=== PATIENT | female | born 1945 | race Two or more races ===

== ENCOUNTER 2016-06-15 09:15 | Emergency (ER) | payer OTHER, MEDICAID ==
[2016-06-15 10:12] VITALS: BP 150/59; PULSE 81; RESP 16; TEMP 97.9; O2SAT 98
--- NOTE | 2016-06-15 10:51 | UCPHY ---
H & P Time Seen by Provider: 06/15/16 10:49 Patient Type: Established HPI/ROS: CHIEF COMPLAINT: Tailbone pain. HISTORY OF PRESENT ILLNESS: The patient is a 71-year-old female who presents after slipping on ice 10 days ago. She is complaining of tailbone pain that has been worsening since she fell and she is now having difficulty walking from the pain. The pain does not radiate and is worsened with movement. Intermittently her left leg from the knee down goes numb. She did not hit her head or lose consciousness. She initially had neck pain but this subsided after 3 or 4 days. She denies incontinence, weakness, hematuria, or other complaints. She has been treating the pain with extra strength Tylenol. Given her age and DM she avoids NSAIDS. Last injection to the LS area for pain was this past Dec. The pain in last 10 days from fall is in a different area and feels diffenerent than her chronic, epiodic pains. REVIEW OF SYSTEMS: Constitutional: No fever, no chills. Eyes: No diplopia. ENT: No sore throat. Cardiovascular: No chest pain, no palpitations. Respiratory: No cough, no shortness of breath, no wheezing. Gastrointestinal: No nausea vomiting or diarrhea. No abdominal pain. Genitourinary: No hematuria or frequency. Musculoskeletal: See HPI. Skin: No rashes. Neurological: No headache. 10 point ROS otherwise negative Past Medical/Surgical History: Diabetes, hysterectomy, hypertension, hyperlipidemia. Social History: Nonsmoker. Smoking Status: Never smoked Physical Exam: General Appearance: Alert, no distress. Afebrile. Normal phonation. No respiratory distress. Eyes: Pupils equal and round no pallor or injection. No icterus ENT, Mouth: Mucous membranes moist. Pharynx not erythematous and without exudate. TM Clear. Neck: No adenopathy. Supple. No JVD. Trachea in midline. Respiratory: There are no retractions, lungs are clear to auscultation. Cardiovascular: Regular rate and rhythm. Abdomen: Soft and nontender, no masses, bowel sounds normal. Femoral pulses equal. Neurological: Ox3. No motor weakness. Sensation intact. Gait nl. Skin: Warm and dry, no rashes. Musculoskeletal: Midline L4/L5 tenderness. No joint swelling. Extremities: No edema. Homans sign negative. No cords. Psychiatric: Patient is oriented X 3, there is no agitation Constitutional: Initial Vital Signs Temperature (C) 36.6 C 06/15/16 10:08 Heart Rate 81 06/15/16 10:08 Respiratory Rate 16 06/15/16 10:08 Blood Pressure 150/59 H 06/15/16 10:08 O2 Sat (%) 98 06/15/16 10:08 O2 Delivery Mode Room Air Allergies/Adverse Reactions: No Known Allergies Allergy (Verified 06/15/16 10:11) Home Medications: Medication Instructions Recorded LISINOPRIL-HCTZ 10-12.5 MG TAB 02/11/09 METFORMIN HCL 02/11/09 Atorvastatin Calcium [Lipitor 20 10/23/12 mg (RX)] Glyburide [Glyburide 1.25 mg] 10/23/12 Docusate Sodium [Colace 100 MG (*)] 100 mg PO BID #20 cap 06/15/16 Hydrocodone/APAP 5/325 [[place] 1 tab PO Q4 #15 tab 06/15/16 5/325 (*)] Medical Decision Making - Diagnostics Imaging: Pelvis x-ray and LS spine films reviewe, interpreted by Dr. Rae, radiology, reveals: No acute process. Films reviewed by me. Lumbar spine x-ray reviewed by Dr. Rae, radiology, reveals: 1. No acute fracture. 2. Grade 1 spondylolisthesis of L4 and L5 due to productive facet arthropathy. 3. Multilevel degenerative disk and facet arthropathy worse at the L4-L5 and L5- S1 levels. ED Course/Re-evaluation: Pelvic and lumbar spine x-rays ordered. [place] Prescription Drug Monitoring Program checked: 2 prescriptions for Vicodin 1 in July and 27 December both 30 tablets 1300: Reassessed patient. Discussed results of x-rays. I answered all of her questions prior to discharge. She is comfortable with the plan. Differential Diagnosis: Differential diagnosis includes but not limited to: Fracture, Sprain, Strain, Acute Degenerative Disc, Disc Herniation, Discitis, Epidural Abscess Departure - Departure Disposition: Home, Routine, Self-Care Clinical Impression: Back contusion Qualifiers: Encounter type: initial encounter Laterality: unspecified laterality Qualified Code(s): S20.229A - Contusion of unspecified back wall of thorax, initial encounter Low back strain Qualifiers: Encounter type: initial encounter Qualified Code(s): S39.012A - Strain of muscle, fascia and tendon of lower back, initial encounter Condition: Good Instructions: Low Back Strain (ED), Contusion in Adults (ED) Additional Instructions: Take 650mg Tylenol every 4-6 hours for pain. For the particularly bad time you may substitute the [place], but do not take the Tylenol Follow up with your primary care provider in the next 5-7 days if symptoms are not improving. Return for any serious worsening of condition. Referrals: ENDER ALCARAZ,. [Primary Care Provider] - As per Instructions Prescriptions: Docusate Sodium [Colace 100 MG (*)] 100 mg PO BID #20 cap Hydrocodone/APAP 5/325 [[place] 5/325 (*)] 1 tab PO Q4 #15 tab Report Scribed for: Timothy Gillette Report Scribed by: Julián Frazier Date of Report: 06/15/16 Time of Report: 11:00 Physician Review and Approval Statement: 06/15/16 11:00 Portions of this note were transcribed by a medical sociologist. I personally performed a history, physical exam, medical decision making, and confirmed accuracy of information the transcribed note.
== END 2016-06-15 13:14 | disposition home or self-care (01) ==
LOC: CED 09:15
DX: S20.229A Contusion of unspecified back wall of thorax, initial encounter (principal); S39.012A Strain of muscle, fascia and tendon of lower back, initial encounter; W19.XXXA Unspecified fall, initial encounter
CPT/HCPCS: 72100; 72170; G0463